=== PATIENT | female | born 1960 | race Hispanic/Latino ===

== ENCOUNTER 2020-11-21 10:40 | Outpatient (CLI) | payer BC ==
[2020-11-23 00:14] LABS: SARS-CoV-2 PCR by NAA Not Detected (NotDetected)
== END 2020-11-21 10:41 | disposition home or self-care (01) ==
LOC: LABBT 10:40
PROVIDERS: ATTEND Urology
DX: Z01.812 Encounter for preprocedural laboratory examination (principal); Z20.822 Contact with and (suspected) exposure to COVID-19
CPT/HCPCS: U0003; U0005

== ENCOUNTER 2020-11-25 08:15 | Day surgery (SDC) | payer BC ==
[2020-11-24 08:59] VITALS: BMI 34.3
[2020-11-25 08:37] LABS: INR-International Normal Ratio 1.3; Prothrombin Time 16.5 sec (12.0-14.7)
[2020-11-25 08:39] LABS: PTT 48.8 sec (22.9-36.1)
[2020-11-25 08:52] LABS: Anion Gap 15 mmol/L (10-20); BUN (Urea Nitrogen) 28 mg/dL (9.8-20.1); Calc. Creatinine Clearance 66 mL/min (70-130); Calcium 11.4 mg/dL (7.8-10.44); Carbon Dioxide 21 mmol/L (23-31); Chloride 100 mmol/L (98-107); Glucose 128 mg/dL (80-115); Sodium 131 mmol/L (136-145)
[2020-11-25] MEDS ORDERED: Iopamidol 370 76% 50 ML VIAL FS ONE (09:33)
[2020-11-25] MEDS ORDERED: Iopamidol 370 76% 100 ML VIAL ONE (09:33)
[2020-11-25 09:58] VITALS: BP 136/51; TEMP 98.5
[2020-11-25 10:07] LABS: #Eosinphils 0.1 thou/uL (0.0-0.7); #Lymphocytes 1.7 thou/uL (1.20-3.40); #Monocytes 0.5 thou/uL (0.11-0.59); #Neutrophils 5.8 thou/uL (1.40-6.50); %Basophils 0.5 % (0.0-1.0); %Eosinophils 1.6 % (0.0-10.0); %Lymphocytes 20.8 % (21.0-51.0); %Monocytes 6.2 % (0.0-10.0); %Neutrophils 70.9 % (42.0-75.0); Hemoglobin 8.5 g/dL (12.0-16.0); Mean Corpuscular Volume 80.4 fL (78.0-98.0); Platelet Count 451 thou/uL (130-400); RBC Distribution Width 16.3 % (11.5-14.5); White Blood Cell (WBC) Count 8.2 thou/uL (4.8-10.8)
[2020-12-01 17:34] LABS: ALT (SGPT) 8 U/L (8-55); AST (SGOT) 11 U/L (5-34); Albumin 3.5 g/dL (3.4-4.8); Alkaline Phosphatase 83 U/L (40-110); Bilirubin, Direct 0.3 mg/dL (0.1-0.3); Bilirubin, Total 0.5 mg/dL (0.2-1.2); Protein, Total 7.8 g/dL (5.8-8.1)
== END 2020-11-25 12:30 | disposition home or self-care (01) ==
LOC: CT 08:15
PROVIDERS: ATTEND Urology
PROC: 0TB13ZX Excision of Left Kidney, Percutaneous Approach, Diagnostic (ICD-10-PCS; principal; 2020-11-25)
DX: C64.2 Malignant neoplasm of left kidney, except renal pelvis (principal); R91.8 Other nonspecific abnormal finding of lung field; E11.9 Type 2 diabetes mellitus without complications; I10 Essential (primary) hypertension; M19.90 Unspecified osteoarthritis, unspecified site; J30.2 Other seasonal allergic rhinitis; K21.9 Gastro-esophageal reflux disease without esophagitis; Z79.84 Long term (current) use of oral hypoglycemic drugs; Z79.899 Other long term (current) drug therapy
CPT/HCPCS: 50200; 74177; 77012; 80048; 80076; 82728; 83615; 85025; 85610; 85730; 86304; 88305; 88333; 88334; Q9967

== ENCOUNTER 2020-12-05 13:24 | Day surgery (SDC) | payer BC ==
[2020-12-05 16:13] VITALS: BP 128/62; TEMP 98.3
== END 2020-12-05 16:32 | disposition home or self-care (01) ==
LOC: ONC/OP 13:24
PROVIDERS: ATTEND Internal Medicine Medical Oncology
PROC: 30233N1 Transfusion of Nonautologous Red Blood Cells into Peripheral Vein, Percutaneous Approach (ICD-10-PCS; principal; 2020-12-05)
DX: D64.9 Anemia, unspecified (principal); C64.9 Malignant neoplasm of unspecified kidney, except renal pelvis; C64.2 Malignant neoplasm of left kidney, except renal pelvis; R51.9 Headache, unspecified; R11.0 Nausea
CPT/HCPCS: 36415; 36430; 70553; 80053; 82248; 83615; 84100; 84550; 86850; 86900; 86901; A9579; P9016

== ENCOUNTER 2020-12-08 16:54 | Outpatient (CLI) | payer BC ==
[2020-12-09 08:19] LABS: SARS-CoV-2 PCR by NAA Not Detected (NotDetected)
== END 2020-12-08 16:55 | disposition home or self-care (01) ==
LOC: LABBT 16:54
PROVIDERS: ATTEND Internal Medicine Medical Oncology
DX: Z01.812 Encounter for preprocedural laboratory examination (principal); Z20.822 Contact with and (suspected) exposure to COVID-19; C64.2 Malignant neoplasm of left kidney, except renal pelvis
CPT/HCPCS: 36415; 80053; U0003; U0005

== ENCOUNTER 2020-12-10 07:20 | Outpatient (CLI) | payer BC ==
[2020-12-10] MEDS ORDERED: Iopamidol 370 76% 100 ML VIAL ONE (09:08)
== END 2020-12-10 07:21 | disposition home or self-care (01) ==
LOC: NM 07:20
PROVIDERS: ATTEND Internal Medicine Medical Oncology
DX: C64.2 Malignant neoplasm of left kidney, except renal pelvis (principal); E83.52 Hypercalcemia; G93.89 Other specified disorders of brain
CPT/HCPCS: 70470; 78306; A9503; Q9967

== ENCOUNTER 2020-12-11 09:08 | Day surgery (SDC) | payer BC ==
[2020-12-10 13:55] VITALS: BMI 34.3
[2020-12-11 11:51] VITALS: BP 121/55; TEMP 98.6
== END 2020-12-11 13:00 | disposition home or self-care (01) ==
LOC: CT 09:08
PROVIDERS: ATTEND Internal Medicine Medical Oncology
PROC: 0BBK3ZX Excision of Right Lung, Percutaneous Approach, Diagnostic (ICD-10-PCS; principal; 2020-12-11)
DX: C64.2 Malignant neoplasm of left kidney, except renal pelvis (principal); C78.01 Secondary malignant neoplasm of right lung; C78.02 Secondary malignant neoplasm of left lung; D63.0 Anemia in neoplastic disease; E11.9 Type 2 diabetes mellitus without complications; I10 Essential (primary) hypertension; M06.9 Rheumatoid arthritis, unspecified; E83.52 Hypercalcemia; E87.5 Hyperkalemia; N28.9 Disorder of kidney and ureter, unspecified; Z87.891 Personal history of nicotine dependence; Z79.84 Long term (current) use of oral hypoglycemic drugs; Z79.899 Other long term (current) drug therapy
CPT/HCPCS: 32408; 71045; 77012; 88305; 88333; 88334; 88341; 88342

== ENCOUNTER 2020-12-22 09:31 | Outpatient (CLI) | payer BC | END 2020-12-22 09:32 | disposition home or self-care (01) | LOC: EKG 09:31 | PROVIDERS: ATTEND Internal Medicine Medical Oncology | DX: Z51.11 Encounter for antineoplastic chemotherapy (principal); C64.2 Malignant neoplasm of left kidney, except renal pelvis; E83.52 Hypercalcemia; I08.3 Combined rheumatic disorders of mitral, aortic and tricuspid valves | CPT/HCPCS: 93005; 93010; 93306 ==

== ENCOUNTER 2021-02-04 10:15 | Inpatient (IN) | payer BC ==
[2021-02-04 10:55] LABS: #Lymphocytes 1.2 thou/uL (1.20-3.40); #Monocytes 1.2 thou/uL (0.11-0.59); #Neutrophils 10.5 thou/uL (1.40-6.50); %Basophils 0.2 % (0.0-1.0); %Eosinophils 0.2 % (0.0-10.0); %Monocytes 9.2 % (0.0-10.0); %Neutrophils 81.5 % (42.0-75.0); Hemoglobin 13.6 g/dL (12.0-16.0); Mean Corpuscular HGB CONC 31.7 g/dL (32.0-36.0); Mean Corpuscular Hemoglobin 27.8 pg (27.0-31.0); Mean Corpuscular Volume 87.6 fL (78.0-98.0); Mean Platelet Volume 9.2 fL (7.4-10.4); Platelet Count 264 thou/uL (130-400); RBC Distribution Width 21.2 % (11.5-14.5); Red Blood Cell (RBC) Count 4.89 mill/uL (4.20-5.40); White Blood Cell (WBC) Count 12.9 thou/uL (4.8-10.8)
[2021-02-04 11:18] LABS: ALT (SGPT) 15 U/L (8-55); AST (SGOT) 12 U/L (5-34); Albumin 3.5 g/dL (3.4-4.8); Alkaline Phosphatase 94 U/L (40-110); Anion Gap 13 mmol/L (10-20); BUN (Urea Nitrogen) 20 mg/dL (9.8-20.1); Bilirubin, Total 2.9 mg/dL (0.2-1.2); Calc. Creatinine Clearance 0 mL/min (70-130); Calcium 9.2 mg/dL (7.8-10.44); Carbon Dioxide 21 mmol/L (23-31); Chloride 98 mmol/L (98-107); Globulin 4.7 g/dL (2.4-3.5); Glucose 162 mg/dL (80-115); Lipase 49 U/L (8-78); Potassium 3.7 mmol/L (3.5-5.1); Protein, Total 8.2 g/dL (5.8-8.1); Sodium 128 mmol/L (136-145)
[2021-02-04] MEDS ORDERED: Morphine 4 MG/ML VIAL ONE (11:34)
[2021-02-04] MEDS ORDERED: Ondansetron PF 4 MG/2 ML Vial ONE (11:34)
[2021-02-04] MEDS ORDERED: Iopamidol-370 76% 500 ML 1 ML ONE (14:10)
[2021-02-04] MEDS ORDERED: Acetaminophen 325 MG TAB PO PRN (15:12)
[2021-02-04] MEDS ORDERED: Ondansetron ODT 4 MG TAB PO PRN (15:12)
[2021-02-04] MEDS ORDERED: HumaLOG 300 UNITS/3 ML VIAL SC PRN ×2 (15:22)
[2021-02-04] MEDS ORDERED: Dextrose 50% Abboject 50 ML SYRINGE SLOW IVP PRN (15:22)
[2021-02-04] MEDS ORDERED: Dextrose 5% in Water 1,000 ML IV PRN (15:22)
[2021-02-04] MEDS ORDERED: Piperacillin/Tazobactam 4.5 GM in Sodium Chloride 0.9% 100 ML IVPB SCH ×3 (15:30→19:00)
[2021-02-04 15:53] LABS: INR-International Normal Ratio 1.4; Prothrombin Time 17.5 sec (12.0-14.7)
[2021-02-04 15:54] LABS: PTT 49.1 sec (22.9-36.1)
[2021-02-04] MEDS ORDERED: Sodium Chloride 0.9% (PF) 10 ML VIAL FS PRN (16:15)
[2021-02-04] MEDS ORDERED: Enoxaparin Sodium 100 MG/ML SYRINGE SC SCH (17:45)
[2021-02-04] MEDS ORDERED: Piperacillin/Tazobactam 3.375 GM in Sodium Chloride 0.9% 100 ML IVPB SCH (19:15)
[2021-02-04 19:21] VITALS: BMI 31.8
[2021-02-04] MEDS: Sodium Chloride 0.9% 1,000 ML IV SCH (19:29)
[2021-02-04] MEDS ORDERED: Ketorolac Tromethamine 30 MG/ML VIAL IVP SCH (20:00)
[2021-02-04] MEDS ORDERED: Morphine 4 MG/ML VIAL SLOW IVP PRN (20:07)
[2021-02-04] MEDS: Piperacillin/Tazobactam 3.375 GM in Sodium Chloride 0.9% 100 ML IVPB SCH (23:19)
[2021-02-05 03:11] LABS: Bacteria/HPF None Seen HPF (None Seen); Bilirubin 1+ (Negative); Blood, Urine 2+ (Negative); Clarity Clear (Clear); Glucose, Urine (Dipstick) Normal (Negative); Ketone, Urine Negative (Negative); Leukocyte 25 Leu/uL (Negative); Nitrite Negative (Negative); Protein, Urine (Dipstick) 100 mg/dL (Neg-Trace); Specific Gravity, Urine 1.048 (1.002-1.036); Squamous Epithelial 0-3 HPF (0-3)
[2021-02-05 03:13] LABS: Urine Culture Reflex Yes Yes
[2021-02-05] MEDS: Sodium Chloride 0.9% 1,000 ML IV SCH ×4 (04:37→23:54)
[2021-02-05 05:29] LABS: #Eosinphils 0.1 thou/uL (0.0-0.7); #Monocytes 0.9 thou/uL (0.11-0.59); #Neutrophils 10.6 thou/uL (1.40-6.50); %Basophils 0.2 % (0.0-1.0); %Eosinophils 0.5 % (0.0-10.0); %Lymphocytes 8.2 % (21.0-51.0); %Monocytes 6.7 % (0.0-10.0); %Neutrophils 84.4 % (42.0-75.0); Hemoglobin 11.5 g/dL (12.0-16.0); Mean Corpuscular HGB CONC 32.1 g/dL (32.0-36.0); Mean Corpuscular Hemoglobin 28.3 pg (27.0-31.0); Mean Corpuscular Volume 88.3 fL (78.0-98.0); Mean Platelet Volume 9.2 fL (7.4-10.4); Platelet Count 170 thou/uL (130-400); RBC Distribution Width 20.4 % (11.5-14.5); Red Blood Cell (RBC) Count 4.07 mill/uL (4.20-5.40); White Blood Cell (WBC) Count 12.6 thou/uL (4.8-10.8)
[2021-02-05] MEDS: Ketorolac Tromethamine 30 MG/ML VIAL IVP PRN ×2 (05:29→18:48)
[2021-02-05 05:50] LABS: Anion Gap 13 mmol/L (10-20); BUN (Urea Nitrogen) 20 mg/dL (9.8-20.1); Calc. Creatinine Clearance 107 mL/min (70-130); Calcium 8.2 mg/dL (7.8-10.44); Carbon Dioxide 19 mmol/L (23-31); Chloride 104 mmol/L (98-107); Glucose 92 mg/dL (80-115); Sodium 132 mmol/L (136-145)
[2021-02-05] MEDS: Piperacillin/Tazobactam 3.375 GM in Sodium Chloride 0.9% 100 ML IVPB SCH ×3 (06:19→23:53)
[2021-02-05] MEDS ORDERED: Enoxaparin Sodium 40 MG/0.4 ML SYRINGE SC SCH (09:00)
[2021-02-05] MEDS: Enoxaparin Sodium 100 MG/ML SYRINGE SC SCH ×2 (10:43→20:27)
[2021-02-05] MEDS: Pantoprazole 40 MG VIAL IVP SCH (11:19)
[2021-02-05] MEDS: Albuterol 200 PUFF (6.7GM INHALER) INH SCH ×2 (16:03→18:32)
[2021-02-05] MEDS ORDERED: Albuterol 200 PUFF (6.7GM INHALER) ONE (18:27)
[2021-02-05 20:24] LABS: SARS-CoV-2 PCR by NAA DETECTED (NotDetected)
[2021-02-05] MEDS: Morphine 4 MG/ML VIAL SLOW IVP PRN (22:41)
[2021-02-06] MEDS: Albuterol 200 PUFF (6.7GM INHALER) INH SCH ×2 (00:01→20:48)
[2021-02-06] MEDS: Morphine 4 MG/ML VIAL SLOW IVP PRN ×2 (02:38→20:41)
[2021-02-06] MEDS: Piperacillin/Tazobactam 3.375 GM in Sodium Chloride 0.9% 100 ML IVPB SCH (06:25)
[2021-02-06 06:39] LABS: #Eosinphils 0.1 thou/uL (0.0-0.7); #Lymphocytes 1.1 thou/uL (1.20-3.40); #Monocytes 0.6 thou/uL (0.11-0.59); #Neutrophils 10.2 thou/uL (1.40-6.50); %Basophils 0.1 % (0.0-1.0); %Eosinophils 0.7 % (0.0-10.0); %Monocytes 4.6 % (0.0-10.0); %Neutrophils 85.6 % (42.0-75.0); Hemoglobin 10.3 g/dL (12.0-16.0); Mean Corpuscular HGB CONC 32.3 g/dL (32.0-36.0); Mean Corpuscular Hemoglobin 28.7 pg (27.0-31.0); Mean Corpuscular Volume 88.9 fL (78.0-98.0); Mean Platelet Volume 9.1 fL (7.4-10.4); Platelet Count 182 thou/uL (130-400); RBC Distribution Width 20.4 % (11.5-14.5); Red Blood Cell (RBC) Count 3.59 mill/uL (4.20-5.40); White Blood Cell (WBC) Count 11.9 thou/uL (4.8-10.8)
[2021-02-06 06:59] LABS: Anion Gap 9 mmol/L (10-20); BUN (Urea Nitrogen) 14 mg/dL (9.8-20.1); Calc. Creatinine Clearance 132 mL/min (70-130); Calcium 7.8 mg/dL (7.8-10.44); Carbon Dioxide 21 mmol/L (23-31); Chloride 109 mmol/L (98-107); Glucose 86 mg/dL (80-115); Potassium 4.3 mmol/L (3.5-5.1); Sodium 135 mmol/L (136-145)
[2021-02-06] MEDS ORDERED: Lisinopril/Hydrochlorothiazide 20 mg/12.5 mg Tablet PO SCH (09:00)
[2021-02-06] MEDS: Enoxaparin Sodium 100 MG/ML SYRINGE SC SCH ×2 (09:47→22:30)
[2021-02-06] MEDS: Ascorbic Acid 500 mg Chewable Tablet PO SCH (09:48)
[2021-02-06] MEDS: Cholecalciferol 1,000 UNITS (25 MCG) TAB PO SCH (09:48)
[2021-02-06] MEDS: Gabapentin 300 MG CAP PO SCH (09:48)
[2021-02-06] MEDS: Sodium Chloride 0.9% 1,000 ML IV SCH ×2 (09:54→17:12)
[2021-02-06] MEDS: Pantoprazole 40 MG VIAL IVP SCH (10:00)
[2021-02-06] MEDS: metroNIDAZOLE 500 MG TAB PO SCH ×2 (15:21→20:40)
[2021-02-06] MEDS: Ciprofloxacin 500 MG TAB PO SCH (20:40)
[2021-02-07] MEDS: hydrALAZINE 20 MG/ML VIAL SLOW IVP PRN ×2 (01:21→09:02)
[2021-02-07] MEDS: Sodium Chloride 0.9% 1,000 ML IV SCH ×3 (05:38→23:47)
[2021-02-07] MEDS: Albuterol 200 PUFF (6.7GM INHALER) INH SCH ×5 (05:40→23:55)
[2021-02-07] MEDS: Ciprofloxacin 500 MG TAB PO SCH (05:40)
[2021-02-07 07:24] LABS: #Eosinphils 0.1 thou/uL (0.0-0.7); #Monocytes 0.5 thou/uL (0.11-0.59); #Neutrophils 10.9 thou/uL (1.40-6.50); %Lymphocytes 8.2 % (21.0-51.0); %Monocytes 4.1 % (0.0-10.0); %Neutrophils 86.7 % (42.0-75.0); Hemoglobin 11.3 g/dL (12.0-16.0); Mean Corpuscular HGB CONC 31.7 g/dL (32.0-36.0); Mean Corpuscular Hemoglobin 28.4 pg (27.0-31.0); Mean Corpuscular Volume 89.6 fL (78.0-98.0); Mean Platelet Volume 8.9 fL (7.4-10.4); Platelet Count 201 thou/uL (130-400); RBC Distribution Width 20.4 % (11.5-14.5); Red Blood Cell (RBC) Count 3.97 mill/uL (4.20-5.40); White Blood Cell (WBC) Count 12.6 thou/uL (4.8-10.8)
[2021-02-07 07:43] LABS: Anion Gap 9 mmol/L (10-20); BUN (Urea Nitrogen) 10 mg/dL (9.8-20.1); Calc. Creatinine Clearance 132 mL/min (70-130); Carbon Dioxide 19 mmol/L (23-31); Chloride 108 mmol/L (98-107); Glucose 133 mg/dL (80-115); Potassium 3.4 mmol/L (3.5-5.1); Sodium 133 mmol/L (136-145)
[2021-02-07] MEDS: Morphine 4 MG/ML VIAL SLOW IVP PRN (08:02)
[2021-02-07] MEDS: Ascorbic Acid 500 mg Chewable Tablet PO SCH (08:03)
[2021-02-07] MEDS: Pantoprazole 40 MG VIAL IVP SCH (08:03)
[2021-02-07] MEDS: Enoxaparin Sodium 100 MG/ML SYRINGE SC SCH ×2 (08:03→20:55)
[2021-02-07] MEDS: Cholecalciferol 1,000 UNITS (25 MCG) TAB PO SCH (08:04)
[2021-02-07] MEDS: metroNIDAZOLE 500 MG TAB PO SCH (08:04)
[2021-02-07] MEDS: Saccharomyces boulardii 250 MG CAP PO SCH (08:04)
[2021-02-07] MEDS: Gabapentin 300 MG CAP PO SCH (08:04)
[2021-02-07] MEDS ORDERED: Lisinopril 20 MG TAB PO SCH ×3 (09:00→13:00)
[2021-02-07] MEDS: Ondansetron PF 4 MG/2 ML Vial IVP PRN (09:02)
[2021-02-07] MEDS ORDERED: Piperacillin/Tazobactam 3.375 GM in Sodium Chloride 0.9% 100 ML IVPB SCH ×2 (09:03→10:00)
[2021-02-07] MEDS ORDERED: Potassium Chloride 20 MEQ/100 ML PREMIX BAG IVPB SCH (13:00)
[2021-02-07] MEDS ORDERED: Ibuprofen 800 MG TAB PO PRN (13:37)
[2021-02-07] MEDS ORDERED: Ibuprofen 200 MG TAB PO PRN (13:40)
[2021-02-07] MEDS ORDERED: Acetaminophen 325 MG TAB PO SCH (13:45)
[2021-02-07] MEDS: Acetaminophen 500 MG TAB PO SCH ×2 (13:49→20:55)
[2021-02-07] MEDS ORDERED: Potassium Phosphate 30 MMOL in Sodium Chloride 0.9% 500 ML IVPB SCH (15:00)
[2021-02-07 15:54] LABS: SARS-CoV-2 NAA Rapid Test Not Detected (NotDetected)
[2021-02-07] MEDS: traMADol HCl 50 MG TAB PO SCH ×3 (17:15→23:47)
[2021-02-07] MEDS ORDERED: FLU VACC QS2021-22(6MOS UP)/PF 60 MCG/0.5 ML SYRINGE IM ONE (19:30)
[2021-02-07] MEDS: Senokot S 8.6-50 MG TAB PO SCH (20:56)
[2021-02-08] MEDS: Acetaminophen 500 MG TAB PO SCH ×4 (02:05→22:10)
[2021-02-08] MEDS: Albuterol 200 PUFF (6.7GM INHALER) INH SCH ×4 (04:05→22:10)
[2021-02-08] MEDS: traMADol HCl 50 MG TAB PO SCH ×4 (05:18→23:15)
[2021-02-08 06:37] LABS: #Eosinphils 0.1 thou/uL (0.0-0.7); #Monocytes 0.7 thou/uL (0.11-0.59); #Neutrophils 9.6 thou/uL (1.40-6.50); %Eosinophils 0.6 % (0.0-10.0); %Monocytes 5.8 % (0.0-10.0); %Neutrophils 84.6 % (42.0-75.0); Mean Corpuscular HGB CONC 31.9 g/dL (32.0-36.0); Mean Corpuscular Hemoglobin 28.5 pg (27.0-31.0); Mean Corpuscular Volume 89.2 fL (78.0-98.0); Mean Platelet Volume 8.9 fL (7.4-10.4); Platelet Count 201 thou/uL (130-400); RBC Distribution Width 20.7 % (11.5-14.5); Red Blood Cell (RBC) Count 3.87 mill/uL (4.20-5.40); White Blood Cell (WBC) Count 11.3 thou/uL (4.8-10.8)
[2021-02-08 06:55] LABS: Magnesium 1.6 mg/dL (1.6-2.6)
[2021-02-08 06:55] LABS: Anion Gap 12 mmol/L (10-20); BUN (Urea Nitrogen) 6 mg/dL (9.8-20.1); Calc. Creatinine Clearance 130 mL/min (70-130); Calcium 7.9 mg/dL (7.8-10.44); Carbon Dioxide 21 mmol/L (23-31); Chloride 104 mmol/L (98-107); Glucose 113 mg/dL (80-115); Potassium 3.7 mmol/L (3.5-5.1); Sodium 133 mmol/L (136-145)
[2021-02-08 07:01] LABS: Phosphorus 1.6 mg/dL (2.3-4.7)
[2021-02-08] MEDS ORDERED: Potassium Phosphate 30 MMOL in Sodium Chloride 0.9% 250 ML 250 ML IVPB SCH (07:30)
[2021-02-08] MEDS ORDERED: Potassium Phosphate 30 MMOL, Magnesium Sulfate 4 GM in Sodium Chloride 0.9% 250 ML 250 ML IVPB SCH (08:00)
[2021-02-08] MEDS ORDERED: Electrolyte Replacement Protocol 1 EACH FS SCH (09:15)
[2021-02-08] MEDS: Polyethylene Glycol 3350 17 GM Packet PO SCH (09:25)
[2021-02-08] MEDS: Ascorbic Acid 500 mg Chewable Tablet PO SCH (09:25)
[2021-02-08] MEDS: metroNIDAZOLE 500 MG TAB PO SCH ×3 (09:25→22:10)
[2021-02-08] MEDS: Saccharomyces boulardii 250 MG CAP PO SCH (09:25)
[2021-02-08] MEDS: Senokot S 8.6-50 MG TAB PO SCH ×2 (09:26→22:10)
[2021-02-08] MEDS: Cholecalciferol 1,000 UNITS (25 MCG) TAB PO SCH (09:26)
[2021-02-08] MEDS: Lisinopril 20 MG TAB PO SCH (09:26)
[2021-02-08] MEDS ORDERED: Electrolyte Replacement Protocol FS PRN (09:30)
[2021-02-08] MEDS: Gabapentin 300 MG CAP PO SCH ×2 (09:31→22:10)
[2021-02-08] MEDS: Enoxaparin Sodium 100 MG/ML SYRINGE SC SCH ×2 (10:13→22:10)
[2021-02-08] MEDS: Pantoprazole 40 MG VIAL IVP SCH (12:03)
[2021-02-08] MEDS: Sodium Chloride 0.9% 1,000 ML IV SCH ×2 (13:10→20:45)
[2021-02-08 18:49] LABS: #Eosinphils 0.1 thou/uL (0.0-0.7); #Lymphocytes 1.2 thou/uL (1.20-3.40); #Monocytes 0.6 thou/uL (0.11-0.59); #Neutrophils 9.5 thou/uL (1.40-6.50); %Eosinophils 0.5 % (0.0-10.0); %Lymphocytes 10.8 % (21.0-51.0); %Monocytes 5.5 % (0.0-10.0); %Neutrophils 83.1 % (42.0-75.0); Hemoglobin 10.6 g/dL (12.0-16.0); Mean Corpuscular HGB CONC 31.6 g/dL (32.0-36.0); Mean Corpuscular Hemoglobin 28.3 pg (27.0-31.0); Mean Corpuscular Volume 89.3 fL (78.0-98.0); Mean Platelet Volume 8.8 fL (7.4-10.4); Platelet Count 218 thou/uL (130-400); RBC Distribution Width 20.6 % (11.5-14.5); Red Blood Cell (RBC) Count 3.76 mill/uL (4.20-5.40); White Blood Cell (WBC) Count 11.4 thou/uL (4.8-10.8)
[2021-02-08 19:06] LABS: Anion Gap 13 mmol/L (10-20); BUN (Urea Nitrogen) 6 mg/dL (9.8-20.1); Calc. Creatinine Clearance 132 mL/min (70-130); Calcium 7.9 mg/dL (7.8-10.44); Carbon Dioxide 20 mmol/L (23-31); Chloride 105 mmol/L (98-107); Glucose 123 mg/dL (80-115); Potassium 4.5 mmol/L (3.5-5.1); Sodium 133 mmol/L (136-145)
[2021-02-08] MEDS: Ciprofloxacin 500 MG TAB PO SCH (20:25)
[2021-02-09] MEDS: Acetaminophen 500 MG TAB PO SCH ×2 (02:00→09:25)
[2021-02-09] MEDS: Albuterol 200 PUFF (6.7GM INHALER) INH SCH ×2 (05:04→10:00)
[2021-02-09] MEDS: Ciprofloxacin 500 MG TAB PO SCH ×2 (05:05→21:04)
[2021-02-09] MEDS: traMADol HCl 50 MG TAB PO SCH ×2 (05:05→12:54)
[2021-02-09] MEDS: Sodium Chloride 0.9% 1,000 ML IV SCH ×2 (05:05→15:32)
[2021-02-09 08:07] LABS: #Eosinphils 0.1 thou/uL (0.0-0.7); #Monocytes 0.5 thou/uL (0.11-0.59); #Neutrophils 9.4 thou/uL (1.40-6.50); %Basophils 0.1 % (0.0-1.0); %Eosinophils 0.8 % (0.0-10.0); %Monocytes 4.6 % (0.0-10.0); %Neutrophils 85.5 % (42.0-75.0); Hemoglobin 9.7 g/dL (12.0-16.0); Mean Corpuscular Volume 90.2 fL (78.0-98.0); Mean Platelet Volume 8.6 fL (7.4-10.4); Platelet Count 195 thou/uL (130-400); RBC Distribution Width 20.9 % (11.5-14.5); Red Blood Cell (RBC) Count 3.48 mill/uL (4.20-5.40); White Blood Cell (WBC) Count 10.9 thou/uL (4.8-10.8)
[2021-02-09 08:20] LABS: Anion Gap 11 mmol/L (10-20); BUN (Urea Nitrogen) 6 mg/dL (9.8-20.1); Calc. Creatinine Clearance 163 mL/min (70-130); Calcium 7.4 mg/dL (7.8-10.44); Carbon Dioxide 18 mmol/L (23-31); Chloride 105 mmol/L (98-107); Glucose 111 mg/dL (80-115); Magnesium 2.1 mg/dL (1.6-2.6); Potassium 3.7 mmol/L (3.5-5.1); Sodium 130 mmol/L (136-145)
[2021-02-09 08:29] LABS: Phosphorus 1.5 mg/dL (2.3-4.7)
[2021-02-09] MEDS: Cholecalciferol 1,000 UNITS (25 MCG) TAB PO SCH (09:20)
[2021-02-09] MEDS: Ascorbic Acid 500 mg Chewable Tablet PO SCH (09:20)
[2021-02-09] MEDS: Enoxaparin Sodium 100 MG/ML SYRINGE SC SCH ×2 (09:21→21:05)
[2021-02-09] MEDS: metroNIDAZOLE 500 MG TAB PO SCH (09:22)
[2021-02-09] MEDS: Lisinopril 20 MG TAB PO SCH (09:22)
[2021-02-09] MEDS: Saccharomyces boulardii 250 MG CAP PO SCH (09:23)
[2021-02-09] MEDS: Senokot S 8.6-50 MG TAB PO SCH ×2 (09:23→21:05)
[2021-02-09] MEDS: Polyethylene Glycol 3350 17 GM Packet PO SCH (09:24)
[2021-02-09] MEDS: Ondansetron PF 4 MG/2 ML Vial IVP PRN (09:41)
[2021-02-09] MEDS ORDERED: Iopamidol-370 76% 500 ML 1 ML ONE (09:52)
[2021-02-09] MEDS: PHOS-NAK 1 PKT PACK PO SCH ×4 (10:56→21:06)
[2021-02-09] MEDS ORDERED: Albuterol 200 PUFF (6.7GM INHALER) INH PRN (13:15)
[2021-02-09] MEDS ORDERED: Acetaminophen 500 MG TAB PO PRN (13:15)
[2021-02-09] MEDS ORDERED: metroNIDAZOLE 500 MG in Premix Bag 1 BAG IVPB SCH (14:00)
[2021-02-09] MEDS: Clindamycin 150 MG CAP PO SCH ×2 (15:23→21:05)
[2021-02-09] MEDS: Gabapentin 300 MG CAP PO SCH (21:04)
[2021-02-10] MEDS: Sodium Chloride 0.9% 1,000 ML IV SCH ×3 (02:34→23:16)
[2021-02-10] MEDS: Clindamycin 150 MG CAP PO SCH ×3 (05:24→21:02)
[2021-02-10] MEDS: Ciprofloxacin 500 MG TAB PO SCH ×2 (05:24→21:02)
[2021-02-10 06:49] LABS: INR-International Normal Ratio 1.3; PTT 73.5 sec (22.9-36.1); Prothrombin Time 16.7 sec (12.0-14.7)
[2021-02-10 07:04] LABS: Phosphorus 2.2 mg/dL (2.3-4.7)
[2021-02-10] MEDS: Lisinopril 20 MG TAB PO SCH (08:15)
[2021-02-10] MEDS: Polyethylene Glycol 3350 17 GM Packet PO SCH (08:17)
[2021-02-10] MEDS: Enoxaparin Sodium 100 MG/ML SYRINGE SC SCH ×2 (08:17→21:01)
[2021-02-10] MEDS: Saccharomyces boulardii 250 MG CAP PO SCH (08:18)
[2021-02-10] MEDS: Senokot S 8.6-50 MG TAB PO SCH ×2 (08:19→21:02)
[2021-02-10] MEDS: Cholecalciferol 1,000 UNITS (25 MCG) TAB PO SCH (08:19)
[2021-02-10] MEDS: Ascorbic Acid 500 mg Chewable Tablet PO SCH (08:19)
[2021-02-10] MEDS ORDERED: Sodium Bicarbonate 2.5 MEQ/5 ML VIAL ONE (11:32)
[2021-02-10] MEDS ORDERED: Fentanyl 100 MCG/2 ML VIAL ONE (11:32)
[2021-02-10] MEDS ORDERED: Magnesium 2 GM/50 ML 2 GM in Premix Bag 1 BAG IVPB SCH (12:45)
[2021-02-10] MEDS: traMADol HCl 50 MG TAB PO PRN ×2 (13:52→21:10)
[2021-02-10 15:21] LABS: BF Color Red; Body Fluid Source Abscess Fluid; Clarity Cloudy/Turbid (Clear); Tube # EDTA
[2021-02-10] MEDS: Gabapentin 300 MG CAP PO SCH (21:02)
[2021-02-11] MEDS: Sodium Chloride 0.9% 1,000 ML IV SCH (02:17)
[2021-02-11] MEDS: Ciprofloxacin 500 MG TAB PO SCH (05:51)
[2021-02-11] MEDS: Clindamycin 150 MG CAP PO SCH (05:51)
[2021-02-11 06:56] LABS: Magnesium 1.9 mg/dL (1.6-2.6)
[2021-02-11 07:02] LABS: Phosphorus 1.8 mg/dL (2.3-4.7)
[2021-02-11] MEDS ORDERED: Magnesium 2 GM/50 ML 2 GM in Premix Bag 1 BAG IVPB SCH (09:00)
[2021-02-11] MEDS ORDERED: PHOS-NAK 1 PKT PACK PO SCH ×2 (09:00)
[2021-02-11] MEDS: Ascorbic Acid 500 mg Chewable Tablet PO SCH (09:33)
[2021-02-11] MEDS: Enoxaparin Sodium 100 MG/ML SYRINGE SC SCH (09:34)
[2021-02-11] MEDS: Lisinopril 20 MG TAB PO SCH (09:35)
[2021-02-11] MEDS: Saccharomyces boulardii 250 MG CAP PO SCH (09:36)
[2021-02-11] MEDS: Cholecalciferol 1,000 UNITS (25 MCG) TAB PO SCH (09:36)
[2021-02-11] MEDS: Senokot S 8.6-50 MG TAB PO SCH (09:36)
[2021-02-11] MEDS: Polyethylene Glycol 3350 17 GM Packet PO SCH (09:37)
[2021-02-11 17:18] VITALS: BP 153/87; TEMP 97.6
[2021-02-11] MEDS: traMADol HCl 50 MG TAB PO PRN (17:30)
[2021-02-11] MEDS ORDERED: Amoxicillin/Potassium Clav 500 MG TAB PO SCH (21:00)
== END 2021-02-11 18:31 | disposition home or self-care (01) | DRG 871 ==
LOC: ERS 10:15 → T4-B 15:12
PROVIDERS: ADMIT Internal Medicine; ATTEND Internal Medicine Geriatric Medicine
PROC: 8E0ZXY6 Isolation (ICD-10-PCS; 2021-02-04)
PROC: 0D9W30Z Drainage of Peritoneum with Drainage Device, Percutaneous Approach (ICD-10-PCS; principal; 2021-02-10)
DX: A41.9 Sepsis, unspecified organism (principal); K65.1 Peritoneal abscess; U07.1 COVID-19; C64.2 Malignant neoplasm of left kidney, except renal pelvis; C78.7 Secondary malignant neoplasm of liver and intrahepatic bile duct; C79.31 Secondary malignant neoplasm of brain; K57.20 Diverticulitis of large intestine with perforation and abscess without bleeding; I82.3 Embolism and thrombosis of renal vein; E22.2 Syndrome of inappropriate secretion of antidiuretic hormone; C78.02 Secondary malignant neoplasm of left lung; C78.01 Secondary malignant neoplasm of right lung; I10 Essential (primary) hypertension; E11.42 Type 2 diabetes mellitus with diabetic polyneuropathy; M06.9 Rheumatoid arthritis, unspecified; F32.A Depression, unspecified; D64.9 Anemia, unspecified; Z79.899 Other long term (current) drug therapy; Z79.84 Long term (current) use of oral hypoglycemic drugs; Z80.3 Family history of malignant neoplasm of breast; Z80.51 Family history of malignant neoplasm of kidney
CPT/HCPCS: 36415; 36416; 49020; 71045; 74177; 77002; 80048; 80053; 81001; 83605; 83690; 83735; 83930; 83935; 84100; 84145; 84300; 85025; 85060; 85610; 85730; 86850; 86900; 86901; 87040; 87070; 87077; 87086; 87186; 87205; 89051; 96374; 96375; C1729; C9113; J0360; J0744; J1650; J1885; J2270; J2405; J2543; J3010; J3475; J3490; J7030; J7050; Q9967; U0002; U0003; U0005

== ENCOUNTER 2021-02-13 12:21 | Day surgery (SDC) | payer BC | END 2021-02-13 13:15 | disposition home or self-care (01) | LOC: SPEC 12:21 | PROVIDERS: ATTEND Specialist | DX: K65.1 Peritoneal abscess (principal) ==

== ENCOUNTER 2021-02-19 08:08 | Outpatient (CLI) | payer BC | END 2021-02-19 08:09 | disposition home or self-care (01) | LOC: CT 08:08 | PROVIDERS: ATTEND Specialist | DX: K65.1 Peritoneal abscess (principal); J98.4 Other disorders of lung; N28.89 Other specified disorders of kidney and ureter | CPT/HCPCS: 74150 ==

== ENCOUNTER 2021-03-20 18:13 | Inpatient (IN) | payer BC ==
[~2021-03-20 18:13] MED LIST: Iopamidol 370 76% 100 ML VIAL ONE
[2021-03-20 19:12] LABS: #Lymphocytes 0.9 thou/uL (1.20-3.40); #Monocytes 0.5 thou/uL (0.11-0.59); #Neutrophils 13.3 thou/uL (1.40-6.50); %Eosinophils 0.2 % (0.0-10.0); %Monocytes 3.6 % (0.0-10.0); %Neutrophils 90.2 % (42.0-75.0); Hemoglobin 7.9 g/dL (12.0-16.0); Mean Corpuscular HGB CONC 32.3 g/dL (32.0-36.0); Mean Corpuscular Hemoglobin 28.4 pg (27.0-31.0); Mean Corpuscular Volume 88.2 fL (78.0-98.0); Mean Platelet Volume 6.7 fL (7.4-10.4); Platelet Count 609 thou/uL (130-400); RBC Distribution Width 18.2 % (11.5-14.5); Red Blood Cell (RBC) Count 2.76 mill/uL (4.20-5.40); White Blood Cell (WBC) Count 14.8 thou/uL (4.8-10.8)
[2021-03-20 19:36] LABS: ALT (SGPT) 7 U/L (8-55); AST (SGOT) 11 U/L (5-34); Alkaline Phosphatase 98 U/L (40-110); Anion Gap 14 mmol/L (10-20); BUN (Urea Nitrogen) 15 mg/dL (9.8-20.1); Bilirubin, Total 0.6 mg/dL (0.2-1.2); Calc. Creatinine Clearance 0 mL/min (70-130); Calcium 10.4 mg/dL (7.8-10.44); Carbon Dioxide 23 mmol/L (23-31); Chloride 97 mmol/L (98-107); Globulin 4.4 g/dL (2.4-3.5); Glucose 138 mg/dL (80-115); Potassium 4.6 mmol/L (3.5-5.1); Protein, Total 7.4 g/dL (5.8-8.1); Sodium 129 mmol/L (136-145)
[2021-03-20 20:13] LABS: SARS-CoV-2 NAA Rapid Test Not Detected (NotDetected)
[2021-03-20] MEDS ORDERED: Cefepime 2 GM VIAL ONE (20:43)
[2021-03-20] MEDS ORDERED: Vancomycin 1.5 GRAM/300 ML BAG 1.5 GM in Premix Bag 1 BAG IVPB SCH (21:00)
[2021-03-20] MEDS ORDERED: Acetaminophen 325 MG TAB PO PRN (23:15)
[2021-03-20] MEDS ORDERED: Ondansetron ODT 4 MG TAB SL PRN (23:15)
[2021-03-20] MEDS ORDERED: Ondansetron PF 4 MG/2 ML Vial IVP PRN (23:15)
[2021-03-20 23:40] VITALS: BMI 28.3
[2021-03-21 06:56] LABS: Bilirubin Negative (Negative); Blood, Urine Moderate (Negative); Clarity Clear (Clear); Glucose, Urine (Dipstick) Negative (Negative); Ketone, Urine Trace mg/dL (Negative); Leukocyte Negative (Negative); Nitrite Negative (Negative); Protein, Urine (Dipstick) 30 mg/dL (Neg-Trace); RBC/HPF 0-3 HPF (0-3); Urobilinogen 0.2 mg/dL (Less than 2)
[2021-03-21 06:57] LABS: Urine Culture Reflex No No
[2021-03-21] MEDS: Gabapentin 300 MG CAP PO SCH (09:28)
[2021-03-21] MEDS ORDERED: Albuterol 200 PUFF (6.7GM INHALER) INH PRN (20:03)
[2021-03-21] MEDS ORDERED: CODEINE PO SCH (21:00)
[2021-03-21] MEDS ORDERED: PROMETHAZINE HCL PO SCH (21:00)
[2021-03-21] MEDS: traMADol HCl 50 MG TAB PO PRN (21:35)
[2021-03-22] MEDS: Morphine 4 MG/ML VIAL SLOW IVP PRN ×2 (00:06→21:48)
[2021-03-22] MEDS: Cholecalciferol 1,000 UNITS (25 MCG) TAB PO SCH (09:06)
[2021-03-22] MEDS: Gabapentin 300 MG CAP PO SCH (09:06)
[2021-03-22] MEDS: traMADol HCl 50 MG TAB PO PRN (14:27)
[2021-03-22] MEDS ORDERED: Lisinopril 10 MG TAB PO SCH (14:45)
[2021-03-23] MEDS: Ascorbic Acid 500 mg Chewable Tablet PO SCH (08:56)
[2021-03-23] MEDS: Cholecalciferol 1,000 UNITS (25 MCG) TAB PO SCH (08:56)
[2021-03-23] MEDS: Gabapentin 300 MG CAP PO SCH (08:57)
[2021-03-23] MEDS: Lisinopril 20 MG TAB PO SCH (09:01)
[2021-03-23] MEDS: traMADol HCl 50 MG TAB PO PRN ×2 (09:07→17:02)
[2021-03-23] MEDS: Morphine 4 MG/ML VIAL SLOW IVP PRN (22:12)
[2021-03-24] MEDS: Lisinopril 20 MG TAB PO SCH (09:05)
[2021-03-24] MEDS: Gabapentin 300 MG CAP PO SCH (09:46)
[2021-03-24] MEDS: Cholecalciferol 1,000 UNITS (25 MCG) TAB PO SCH (09:48)
[2021-03-24] MEDS: Ascorbic Acid 500 mg Chewable Tablet PO SCH (09:48)
[2021-03-24] MEDS ORDERED: guaiFENesin/Codeine 200 mg/20 mg 10 ml Cup PO PRN (11:52)
[2021-03-24] MEDS: traMADol HCl 50 MG TAB PO PRN (22:23)
[2021-03-25 08:34] VITALS: BP 111/72; TEMP 97.5
[2021-03-25] MEDS: Gabapentin 300 MG CAP PO SCH (10:01)
[2021-03-25] MEDS: Cholecalciferol 1,000 UNITS (25 MCG) TAB PO SCH (10:02)
[2021-03-25] MEDS: Ascorbic Acid 500 mg Chewable Tablet PO SCH (10:03)
[2021-03-25] MEDS: Lisinopril 20 MG TAB PO SCH (10:03)
[2021-03-25] MEDS: traMADol HCl 50 MG TAB PO PRN (10:18)
== END 2021-03-25 16:10 | disposition hospice, home (50) | DRG 686 ==
LOC: ERS 18:13 → MSONC 22:08
PROVIDERS: ADMIT Student in an Organized Health Care Education/Training Program; ATTEND Family Medicine
DX: C64.2 Malignant neoplasm of left kidney, except renal pelvis (principal); J96.01 Acute respiratory failure with hypoxia; C78.00 Secondary malignant neoplasm of unspecified lung; C78.7 Secondary malignant neoplasm of liver and intrahepatic bile duct; C77.8 Secondary and unspecified malignant neoplasm of lymph nodes of multiple regions; C79.71 Secondary malignant neoplasm of right adrenal gland; C79.51 Secondary malignant neoplasm of bone; E87.1 Hypo-osmolality and hyponatremia; Z66 Do not resuscitate; Z20.822 Contact with and (suspected) exposure to COVID-19; Z51.5 Encounter for palliative care; D63.0 Anemia in neoplastic disease; E11.69 Type 2 diabetes mellitus with other specified complication; E66.9 Obesity, unspecified; I10 Essential (primary) hypertension; Z79.51 Long term (current) use of inhaled steroids; Z79.899 Other long term (current) drug therapy; Z79.84 Long term (current) use of oral hypoglycemic drugs; Z68.28 Body mass index [BMI] 28.0-28.9, adult
CPT/HCPCS: 0240U; 36415; 36430; 71045; 71275; 74177; 80053; 81001; 83605; 83880; 84443; 84484; 85025; 85379; 86850; 86900; 86901; 87040; 93005; 94640; 96365; 96367; J0692; J2270; J3370; J7620; P9016; Q9967